=== PATIENT | male | born 1940 | race Caucasian/White ===

== ENCOUNTER → 2018-02-23 | Outpatient (CLI) | payer MEDICARE ==
--- NOTE | 2018-02-26 00:07 | MR ---
EXAMINATION TYPE: MR ankle RT wo con DATE OF EXAM: 02/23/2018 COMPARISON: NONE HISTORY: 77-year-old male Bulging/swelling appearing anterior tibial tendinopathy/ Tear TECHNIQUE: Multiplanar, multisequence images of the right were obtained without IV contrast. FINDINGS: There are moderate to advanced degenerative changes throughout the midfoot, particularly the second a nd third TMT joints and to a lesser extent, the medial and middle intercuneiform and fourth TMT joint s. Moderate sized plantar calcaneal spur. There is thickening at the origin of plantar fascia measuring 9 mm but without any significant adjacent soft tissue or osseous edema. Achilles tendon is intact. Nonspecific edematous change within Kager's fat is noted. The tarsal tunnel is clear. Normal fat signal within the sinus tarsi. There is relative diffuse fatty atrophy of the plantar musculature of the foot. The syndesmosis is intact. There is marked thickening and abnormal signal with fiber disruption of th e anterior tibial tendon. The balled up stump is located at and just above the level of the tibiotala r joint. Small amount of distal insertional fibers are noted at the base of the first metatarsal. The deep posterior fibers of the deltoid ligament appear intact. Spring ligament complex appears inta ct. There is thickening of the posterior tibial tendon with tenosynovial fluid along the medial flexo rs. The lateral ligamentous complex appears intact. There is a partial thickness split tear of the perone us brevis at and just below the level of the lateral malleolus. Moderate tenosynovial fluid along the peroneus longus especially along the plantar aspect of the foot. Focal abnormal marrow signal with a curvilinear low T1 weighted signal in the plantar aspect of the c uboid. Lisfranc ligament is intact. IMPRESSION: 1. ATT rupture. The balled up stump is located at the level of the anterior tibiotalar joint. Some di stal insertional fibers at the base of the first metatarsal remain intact and the tear occurs just pr oximal to the insertion. 2. Partial thickness split tear of the peroneal brevis at and just below the level of the lateral mal leolus. Moderate peroneus longus tenosynovitis especially along the plantar aspect of the foot. 3. Mild posterior tibial tendinosis and mild tenosynovitis of the medial flexor tendons. 4. Irregular signal along the plantar aspect of the cuboid bone could represent reactive changes or s ubtle incomplete stress fracture. 5. 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
== END | disposition home or self-care (01) ==
LOC: RADMRIMAIN 06:39
PROVIDERS: ATTEND Podiatrist Foot & Ankle Surgery
DX: S96.811A Strain of other specified muscles and tendons at ankle and foot level, right foot, initial encounter (principal); M19.071 Primary osteoarthritis, right ankle and foot; M65.871 Other synovitis and tenosynovitis, right ankle and foot; M76.821 Posterior tibial tendinitis, right leg; M89.8X7 Other specified disorders of bone, ankle and foot

== ENCOUNTER 2019-01-24 11:12 | Emergency (ER) | payer MEDICARE ==
[2019-01-24] MEDS ORDERED: COLCHICINE 0.6 MG EACH PO STA (11:55)
[2019-01-24] MEDS ORDERED: SODIUM CHLORIDE 0.9% 500 ML 500 ML IV ONE (11:56)
[2019-01-24 12:42] LABS: Basophils # (A) 0.1 k/uL (0-0.2); Basophils % (A) 1 %; Eosinophils # (A) 0.3 k/uL (0-0.7); Eosinophils % (A) 4 %; HCT 40.9 % (39.0-53.0); Lymphocytes # (A) 1.2 k/uL (1.0-4.8); Lymphocytes % (A) 17 %; MCH 30.4 pg (25.0-35.0); MCHC 34.2 g/dL (31.0-37.0); MCV 89.1 fL (80.0-100.0); Mean Platelet Volume 7.3; Monocytes # (A) 0.4 k/uL (0-1.0); Monocytes % (A) 6 %; Neutrophils # (A) 4.9 k/uL (1.3-7.7); Neutrophils % (A) 70 %; Platelet Count 255 k/uL (150-450); RBC 4.59 m/uL (4.30-5.90); RDW 13.4 % (11.5-15.5)
--- NOTE | 2019-01-24 12:56 | XR ---
EXAMINATION TYPE: XR foot complete LT DATE OF EXAM: 01/24/2019 COMPARISON: NONE HISTORY: Pain and redness TECHNIQUE: Three views are submitted. FINDINGS: The osseous structures are intact. There is no acute fracture or dislocation. Significant arthropa thy of the first MTP. No erosive changes. There is arthropathy of the tarsometatarsal junction. Calca joe spur.. IMPRESSION: 1. No acute fracture or dislocation. If symptoms persist, follow-up exam in 7 to 10 days could be ob tained. 2. Arthropathy of the first MTP and tarsometatarsal junction.
[2019-01-24 12:58] LABS: ALT 26 U/L (21-72); AST 27 U/L (17-59); African American GFR (CKD) >90 (>60 ml/min/1.73 sqM); Albumin 4.2 g/dL (3.5-5.0); Alkaline Phosphatase 57 U/L (38-126); Anion Gap 9 mmol/L; Blood Urea Nitrogen 17 mg/dL (9-20); Calcium 9.2 mg/dL (8.4-10.2); Carbon Dioxide 26 mmol/L (22-30); Chloride 100 mmol/L (98-107); Glucose 126 mg/dL (74-99); Potassium 4.2 mmol/L (3.5-5.1); Sodium 135 mmol/L (137-145); Total Bilirubin 0.7 mg/dL (0.2-1.3); Total Protein 6.9 g/dL (6.3-8.2); Uric Acid 5.5 mg/dL (3.5-8.5)
[2019-01-24 13:04] LABS: C Reactive Protein <5.0 mg/L (<10.0)
--- NOTE | 2019-01-24 13:20 | ED ---
General Adult HPI - General Source: patient, RN notes reviewed Mode of arrival: ambulatory Limitations: no limitations <Jam Dudley - Last Filed: 01/24/19 13:14> <Jhony Forbes - Last Filed: 01/24/19 13:39> - General Chief complaint: Extremity Problem,Nontraumatic Stated complaint: lft foot injury Time Seen by Provider: 01/24/19 11:24 - History of Present Illness Initial comments: 78-year-old male presents emergency Department with chief complaint of left foot pain. Patient states he feels some discomfort 2 days agoand has been read very sensitive to the touch. Denies any trauma. Patient states that his been walking on the inside of his foot because of his feel better he denies any fevers, chills, paresthesias, cuts or lacerations to his foot. Patient has not taken anything for the pain does not require anything for the pain this time. Patient has no history gout denies any history of renal disease no vascular disease. (Jam Dudley) - Related Data Home Medications Medication Instructions Recorded Confirmed Aspirin EC [Ecotrin] 325 mg PO HS 01/24/19 01/24/19 Finasteride [Proscar] 5 mg PO DAILY 01/24/19 01/24/19 Glucosamine-Chondr 500-400Mg 1 tab PO DAILY 01/24/19 01/24/19 Lisinopril-Hctz 20-25 mg 1 tab PO DAILY 01/24/19 01/24/19 [Zestoretic 20-25] Pravastatin Sodium [Pravachol] 40 mg PO HS 01/24/19 01/24/19 metFORMIN HCL [Glucophage] 500 mg PO BID 01/24/19 01/24/19 Previous Rx's Medication Instructions Recorded Cephalexin [Keflex] 500 mg PO Q6HR #40 cap 01/24/19 Indomethacin [Indocin] 50 mg PO TID #30 capsule 01/24/19 Allergies Allergy/AdvReac Type Severity Reaction Status Date / Time No Known Allergies Allergy Verified 01/24/19 11:39 Review of Systems ROS Other: All systems not noted in ROS Statement are negative. <Jam Dudley - Last Filed: 01/24/19 13:14> ROS Other: All systems not noted in ROS Statement are negative. <Jhony Forbes - Last Filed: 01/24/19 13:39> ROS Statement: Those systems with pertinent positive or pertinent negative responses have been documented in the HPI. Past Medical History Past Medical History: Diabetes Mellitus, Hyperlipidemia, Hypertension History of Any Multi-Drug Resistant Organisms: None Reported Past Surgical History: Orthopedic Surgery Additional Past Surgical History / Comment(s): sinus surgery, right foot surgery Past Psychological History: No Psychological Hx Reported Smoking Status: Never smoker Past Alcohol Use History: Daily, Occasional Past Drug Use History: None Reported <OctaviaJam Mckinley - Last Filed: 01/24/19 13:14> General Exam Limitations: no limitations General appearance: alert, in no apparent distress Head exam: Present: atraumatic, normocephalic, normal inspection Eye exam: Present: normal appearance, PERRL, EOMI. Absent: scleral icterus, conjunctival injection, periorbital swelling ENT exam: Present: normal exam, normal oropharynx, mucous membranes moist Neck exam: Present: normal inspection, full ROM. Absent: tenderness, meni ngismus, lymphadenopathy Respiratory exam: Present: normal lung sounds bilaterally. Absent: respiratory distress, wheezes, rales, rhonchi, stridor Cardiovascular Exam: Present: regular rate, normal rhythm, normal heart sounds. Absent: systolic murmur, diastolic murmur, rubs, gallop, clicks Extremities exam: Present: other (Left foot there is erythema noted from the second MTP to the fourth MTP on the dorsal aspect of foot, there is tenderness over the fourth MTP with equal pedal pulses., No palpable lymph nodes and left groin) <OctaviaJam Mckinley - Last Filed: 01/24/19 13:14> Course <Jhony Forbes - Last Filed: 01/24/19 13:39> Vital Signs 01/24/19 01/24/19 11:14 13:29 Temperature 98.4 F 98.3 F Pulse Rate 74 55 L Respiratory 16 18 Rate Blood Pressure 172/80 140/72 O2 Sat by Pulse 98 98 Oximetry - Reevaluation(s) Reevaluation #1: 01/24/19 13:38 PA supervision: I proceeded [id number] evaluation the patient he did present with complaints of left foot pain with some evidence of erythema. Examination does appear to be consistent with a cellulitis. No lymphadenopathy no lymphangitis this point. I do agree with the assessment and plan patient will be started on antibiotics and anti-inflammatories will follow-up with his doctor and return if any problems. No evidence of foreign body or open wound seen at this time. (Jhony Forbes) Medical Decision Making - Lab Data Result diagrams: 01/24/19 12:25 01/24/19 12:25 <Jam Dudley - Last Filed: 01/24/19 13:14> - Lab Data Result diagrams: 01/24/19 12:25 01/24/19 12:25 <Jhony Forbes - Last Filed: 01/24/19 13:39> - Medical Decision Making 78-year-old male presented for left foot pain redness and swelling. Patient had labs, x-ray x-rays were negative for acute fracture. Uric acid and CRP are within normal limits at this time. This may be underlying infection will be started on antibiotics and anti-inflammatories for possible gout. Patient will follow-up PCP in one to 2 days return for any worsening symptoms. (Jam Dudley) - Lab Data Lab Results 01/24/19 01/24/19 Range/Units 12:25 12:25 WBC 7.0 (3.8-10.6) k/uL RBC 4.59 (4.30-5.90) m/uL Hgb 14.0 (13.0-17.5) gm/dL Hct 40.9 (39.0-53.0) % MCV 89.1 (80.0-100.0) fL MCH 30.4 (25.0-35.0) pg MCHC 34.2 (31.0-37.0) g/dL RDW 13.4 (11.5-15.5) % Plt Count 255 (150-450) k/uL Neutrophils % 70 % Lymphocytes % 17 % Monocytes % 6 % Eosinophils % 4 % Basophils % 1 % Neutrophils # 4.9 (1.3-7.7) k/uL Lymphocytes # 1.2 (1.0-4.8) k/uL Monocytes # 0.4 (0-1.0) k/uL Eosinophils # 0.3 (0-0.7) k/uL Basophils # 0.1 (0-0.2) k/uL Sodium 135 L (137-145) mmol/L Potassium 4.2 (3.5-5.1) mmol/L Chloride 100 (98-107) mmol/L Carbon Dioxide 26 (22-30) mmol/L Anion Gap 9 mmol/L BUN 17 (9-20) mg/dL Creatinine 0.80 (0.66-1.25) mg/dL Est GFR (CKD-EPI)AfAm >90 (>60 ml/min/1.73 sqM) Est GFR (CKD-EPI)NonAf 87 (>60 ml/min/1.73 sqM) Glucose 126 H (74-99) mg/dL Uric Acid 5.5 (3.5-8.5) mg/dL Calcium 9.2 (8.4-10.2) mg/dL Total Bilirubin 0.7 (0.2-1.3) mg/dL AST 27 (17-59) U/L ALT 26 (21-72) U/L Alkaline Phosphatase 57 (38-126) U/L C-Reactive Protein <5.0 (<10.0) mg/L Total Protein 6.9 (6.3-8.2) g/dL Albumin 4.2 (3.5-5.0) g/dL Disposition Is patient prescribed a controlled substance at d/c from ED?: No Time of Disposition: 13:19 <Jam Dudley - Last Filed: 01/24/19 13:14> <Jhony Forbes - Last Filed: 01/24/19 13:39> Clinical Impression: Cellulitis of left foot Disposition: HOME SELF-CARE Condition: Stable Instructions (If sedation given, give patient instructions): Cellulitis (ED) Additional Instructions: Please return to the Emergency Department if symptoms worsen or any other concerns. Prescriptions: Indomethacin [Indocin] 50 mg PO TID #30 capsule Cephalexin [Keflex] 500 mg PO Q6HR #40 cap Referrals: Reyes Mackenzie MD [Primary Care Provider] - 1-2 days
[2019-01-24 13:32] VITALS: BP 140/72; PULSE 55; RESP 18; TEMP 98.3
== END 2019-01-24 13:29 | disposition home or self-care (01) ==
LOC: EC 11:12
DX: L03.116 Cellulitis of left lower limb (principal); E11.9 Type 2 diabetes mellitus without complications; E78.5 Hyperlipidemia, unspecified; I10 Essential (primary) hypertension; Z79.82 Long term (current) use of aspirin; Z79.84 Long term (current) use of oral hypoglycemic drugs; Z79.899 Other long term (current) drug therapy
CPT/HCPCS: 36415; 80053; 84550; 85025; 86140; 99283

== ENCOUNTER → 2022-02-14 | Outpatient (CLI) | payer MEDICARE ==
[~2022-02-14] MED LIST: BEBTELOVIMAB (EUA) 175 MG/2 ML VIAL IV ONE; SODIUM CHLORIDE 0.9% 500 ML 500 ML in EMPTY BAG 1 BAG IV PRN
[2022-02-14 13:20] VITALS: BP 120/72; PULSE 100; RESP 18; TEMP 97.7
== END | disposition home or self-care (01) ==
LOC: PROCWHC3 13:00
PROVIDERS: ATTEND Nurse Practitioner Adult Health
DX: U07.1 COVID-19 (principal)
CPT/HCPCS: Q0222; M0222

== ENCOUNTER → 2022-03-17 | Outpatient (CLI) | payer MEDICARE ==
[2022-03-17 14:43] LABS: Basophils # (A) 0.03 X 10*3/uL (0.00-0.10); Basophils % (A) 0.6 %; Eosinophils # (A) 0.14 X 10*3/uL (0.04-0.35); Eosinophils % (A) 2.8 %; HCT 38.3 % (39.6-50.0); HGB 12.6 g/dL (13.0-17.0); Immature Grans, Automated 0.2 %; Lymphocytes # (A) 1.59 X 10*3/uL (0.90-5.00); Lymphocytes % (A) 31.2 %; MCH 30.7 pg (27.0-32.0); MCHC 32.9 g/dL (32.0-37.0); MCV 93.2 fL (80.0-97.0); Monocytes # (A) 0.61 X 10*3/uL (0.20-1.00); NRBC Per 100 WBC 0 /100 WBCS (0.0-0.0); Neutrophils # (A) 2.71 X 10*3/uL (1.80-7.70); Neutrophils % (A) 53.2 %; Platelet Count 242 X 10*3/uL (140-440); RBC 4.11 X 10*6/uL (4.40-5.60); WBC 5.09 X 10*3/uL (4.50-10.00)
[2022-03-17 15:45] LABS: ALT 21 U/L (10-49); AST 19 U/L (14-35); African American GFR (CKD) 73.1 (60.0-200.0); Albumin 4.1 g/dL (3.8-4.9); Albumin/Globulin Ratio 2.05 (1.60-3.17); Alkaline Phosphatase 44 U/L (41-126); BUN/Creat Ratio 18.82 Ratio (12.00-20.00); Blood Urea Nitrogen 20.7 mg/dL (9.0-27.0); C Reactive Protein <0.30 mg/dL (0.00-0.80); Carbon Dioxide 24.5 mmol/L (20.0-27.5); Chloride 100 mmol/L (96-109); Creatine Kinase 91 U/L (35-257); Glucose 117 mg/dL (70-110); Non-African American GFR(CKD) 63.1 (60.0-200.0); Potassium 4.5 mmol/L (3.5-5.5); Sodium 134 mmol/L (135-145); Total Protein 6.1 g/dL (6.2-8.2)
[2022-03-17 16:46] LABS: Erythrocyte Sedimentation Rate 4 mm/Hr (0-20)
== END | disposition home or self-care (01) ==
LOC: LABWHC1 09:00
PROVIDERS: ATTEND Family Medicine
DX: R06.00 Dyspnea, unspecified (principal); I48.91 Unspecified atrial fibrillation; Z86.16 Personal history of COVID-19
CPT/HCPCS: 36415; 80053; 82550; 83880; 84439; 84443; 84484; 85025; 85652; 86140